=== PATIENT | male | born 1955 | race Caucasian/White ===

== ENCOUNTER 2018-01-24 14:38 | Emergency (ER) | payer MEDICAID ==
[~2018-01-24] VITALS: Ht 172.7 cm; Wt 104.0 kg
[~2018-01-24 14:38] MED LIST: HYDR-569 PO
[2018-01-24 14:41] VITALS: BP 151/85
[2018-01-24] MEDS ORDERED: ACET-3067 PO (15:06)
[2018-01-24] MEDS ORDERED: HYDROcodone/acetaminophen 5mg/325mg tablet PO ONE (15:10)
== END 2018-01-24 15:17 | disposition home or self-care (01) ==
LOC: ER 14:38
DX: M25.561 Pain in right knee (principal); M25.661 Stiffness of right knee, not elsewhere classified; I10 Essential (primary) hypertension; E11.9 Type 2 diabetes mellitus without complications; G89.29 Other chronic pain
CPT/HCPCS: 73564; 99284; A6449

== ENCOUNTER 2018-03-27 05:36 | Emergency (ER) | payer MEDICAID ==
[~2018-03-27] VITALS: Ht 180.3 cm; Wt 94.2 kg
[~2018-03-27 05:36] MED LIST changes: +HYDR-4383 PO; -HYDR-569 PO
[2018-03-27 05:40] VITALS: BP 129/90
== END 2018-03-27 08:12 | disposition left against medical advice (07) ==
LOC: ER 05:39
DX: R10.84 Generalized abdominal pain (principal); Z53.21 Procedure and treatment not carried out due to patient leaving prior to being seen by health care provider